=== PATIENT | male | born 1965 | race Caucasian/White ===

== ENCOUNTER 2017-07-28 19:00 | Emergency (ER) | payer MEDICAID ==
[~2017-07-28] VITALS: Ht 190.5 cm; Wt 123.8 kg
[2017-07-28 19:20] VITALS: BP 124/81
[2017-07-28 20:01] LABS: BASOPHILS % (AUTO) 0.4 % (0.0-2.0); EOSINOPHILS % (AUTO) 0.3 % (0.0-3.0); HEMATOCRIT 43.4 % (42.0-52.0); HEMOGLOBIN 15.1 G/DL (14.2-18.0); LYMPHOCYTES % (AUTO) 9.8 % (20.0-45.0); MEAN CORPUSCULAR VOLUME 83 FL (80-99); MONOCYTES % (AUTO) 8.7 % (1.0-10.0); NEUTROPHILS % (AUTO) 80.8 % (45.0-75.0); PLATELET COUNT 270 K/UL (150-450); RED BLOOD COUNT 5.22 M/UL (4.70-6.10); RED CELL DISTRIBUTION WIDTH 13.1 % (11.6-14.8); WHITE BLOOD COUNT 10.2 K/UL (4.8-10.8)
[2017-07-28 20:07] LABS: ANION GAP 7 mmol/L (5-15); BLOOD UREA NITROGEN 16 mg/dL (7-18); CARBON DIOXIDE 25 MMOL/L (21-32); CHLORIDE 101 MMOL/L (98-107); CREATININE 0.8 MG/DL (0.55-1.30); POTASSIUM 4.2 MMOL/L (3.5-5.1); SODIUM 133 MMOL/L (136-145)
[2017-07-28 20:11] LABS: ALANINE AMINOTRANSFERASE 71 U/L (12-78); ALBUMIN 3.8 G/DL (3.4-5.0); ALKALINE PHOSPHATASE 213 U/L (46-116); ASPARTATE AMINO TRANSFERASE 29 U/L (15-37); BILIRUBIN,DIRECT 0.1 MG/DL (0.0-0.3); BILIRUBIN,TOTAL 0.5 MG/DL (0.2-1.0)
[2017-07-28 21:28] VITALS: BP 150/69
[2017-07-28 23:20] VITALS: BP 147/102
--- NOTE | 2017-07-28 23:30 | Emergency Room Report ---
History of Present Illness General Chief Complaint: Overdose Source: Patient, Medical Record, EMS Present Illness HPI 52-year-old male presents with taking 6000mg of Keppra at 6 PM today He initially reported to triage that he was trying to prevent a seizure Then when I spoke with him he reportedly was depressed and it was an overdose attempt He reports that he never actually had a seizure and that he did attempt to overdose once in the past around 5 years ago His only other complaint is his chronic back pain for which he reports taking 4 mg of Dilaudid every day He denies any change in that back pain Allergies: Coded Allergies: CARBAMAZEPINE (Verified Allergy, Unknown, 07/28/17) IODINE (Verified Allergy, Unknown, 07/28/17) PHENYTOIN (Verified Allergy, Unknown, 07/28/17) Patient History Past Medical History: see triage record Reviewed Nursing Documentation: PMH: Agreed, PSxH: Agreed Nursing Documentation-PMH Past Medical History: No History, Except For Hx Hypertension: Yes Hx Diabetes: Yes History Of Psychiatric Problem: Yes - depression Hx Neurological Problems: Yes - hydrocephalus Hx Seizures: Yes Review of Systems All Other Systems: negative except mentioned in HPI Physical Exam Vital Signs Date Time Temp Pulse Resp B/P (MAP) Pulse Ox O2 Delivery O2 Flow Rate FiO2 07/28/17 18:52 97.9 98 18 132/68 98 Room Air Sp02 EP Interpretation: reviewed, normal General Appearance: no apparent distress, alert, non-toxic Head: normocephalic, other - old right craniotomy scar Eyes: bilateral eye normal inspection, bilateral eye PERRL, bilateral eye EOMI ENT: normal ENT inspection, hearing grossly normal, normal pharynx, no angioedema, normal voice, moist mucus membranes Neck: normal inspection, full range of motion, supple, supple/symm/no masses Respiratory: chest non-tender, lungs clear, normal breath sounds, chest symmetrical, palpation of chest normal Cardiovascular #1: normal peripheral pulses, regular rate, rhythm Cardiovascular #2: 2+ radial (R), 2+ radial (L) Gastrointestinal: normal inspection, non tender, soft, no mass, no guarding, no rebound Rectal: deferred Genitourinary: normal inspection, no CVA tenderness Musculoskeletal: back normal, gait/station normal, normal range of motion, non- tender, no calf tenderness Neurologic: normal inspection - intermittent facial contortions which patient reports are from him old SDH, alert, responsive, functional architect III-XII nml as tested, motor strength/tone normal, sensory intact, speech normal Psychiatric: judgement/insight normal, memory normal, mood/affect normal, no suicidal/homicidal ideation Skin: normal color, no rash, warm/dry, normal turgor Lymphatic: no adenopathy Medical Decision Making Reaction to Intervention: No change ER Course I spoke with [facility] and the 6000 mg of Keppra should cause no harm has these doses were tested when the drug was being developed with no side effects He has been observed for 6 hours and is medically cleared at this time He'll be observed awaiting pet team evaluation as he reported this as a suicide attempt and depression EKG Diagnostic Results EP Interpretation: afib Rate: tachycardiac ST Segments: no acute changes Other Impression afib rate [address]-T changes or TWI;s Rhythm Strip Diag. Results EP Interpretation: yes Rate: 105 Rhythm: no PVC's, no ectopy, other - afib Last Vital Signs Date Time Temp Pulse Resp B/P (MAP) Pulse Ox O2 Delivery O2 Flow Rate FiO2 07/28/17 23:20 106 22 147/102 98 Room Air 07/28/17 19:20 97.9 Condition: Stable Referrals: NON PHYSICIAN (PCP) BRAYDEN CONNELLY M.D Jul 28, 2017 23:30
[2017-07-29 01:15] VITALS: BP 108/72
--- NOTE | 2017-07-29 16:34 | Cardiology Report ---
APPROVED REPORT EKG Measurement Heart [id number] Atrial fibrillation Abnormal ECG
== END 2017-07-29 01:15 | disposition home or self-care (01) ==
LOC: EDBD 19:00 → EMR 19:30
DX: Z03.6 Encounter for observation for suspected toxic effect from ingested substance ruled out (principal); R00.0 Tachycardia, unspecified; G40.909 Epilepsy, unspecified, not intractable, without status epilepticus; F32.9 Major depressive disorder, single episode, unspecified; I10 Essential (primary) hypertension; E11.9 Type 2 diabetes mellitus without complications; I48.91 Unspecified atrial fibrillation; Z88.8 Allergy status to other drugs, medicaments and biological substances
CPT/HCPCS: 36415; 36600; 80048; 80076; 80307; 80329; 82803; 85025; 93005; 99284